=== PATIENT | male | born 1965 | race Caucasian/White ===

== ENCOUNTER 2024-06-22 06:16 | Day surgery (SDC) | payer SELFPAY, OTHER ==
[2024-06-22] VITALS (10 sets, daily range): BP systolic 109–126; BP diastolic 70–87; PULSE 60–78; RESP 10–18; TEMP 36.2–37.1; O2SAT 88–98; BMI 32.8
--- NOTE | 2024-06-22 06:26 | EKG12_ITS ---
Test Reason : PREOP Blood Pressure : */* mmHG Vent. Rate : 63 BPM Atrial Rate : 63 BPM P-R Int : 210 ms QRS Dur : 78 ms QT Int : 408 ms P-R-T Axes : 51 11 47 degrees QTcB Int : 417 ms Sinus rhythm with 1st degree A-V block Otherwise normal ECG No previous ECGs available Confirmed by NAOMI RAMOS, SARKIS ([id number]), newspaper managing editor YOSHI LANDON ([id number]) on 06/27/2024 8:19:11 A M Referred By: Ti Haywood Confirmed By: SARKIS SALGADO MD
--- NOTE | 2024-06-22 06:44 | PCM.PRE.AN2 ---
ASA Classification* ASA Classification ASA Classification: 2 Assessment & Plan Anesthesia* Anesthesia Assessment Anesthesia Assessment: Discussed sedation and/or anesthesia options, risks, benefits, and alternatives with patient/parents/legal guardian/POA. Questions invited. The patient/parents/legal guardian/POA seems to understand and agrees to proceed with anesthesia plan. Reviewed the physical assessment, medical history, allergy history and patient home medications list prior to surgery/procedure/anesthetic and documented any changes. Performed airway and anesthesia risk assessments. Anesthesia Type Anesthesia Type: General Anesthesia Focused Assessment* Airway Assessment Mouth opens: >3 cm Mallampati Score: II Focused Labs Anesthesia Preop lab: CBC CHEMISTRY COAG Pre-Assessment Diagnosis/Proposed Procedure Planned Operative Procedure(s): Lap Robotic Ventral Hernia w/mesh Anesthesia History Anesthesia History - irish moss gatherer: Anesthesia History - irish moss gatherer Hx Hospitalization No 06/16/24 13:15 Any Problems With Anesthesia No 06/16/24 13:15 Cholinesterase deficiency No 06/16/24 13:15 You/Your Family Experience No 06/16/24 13:15 fever (hyperthermia) with Relationship Recent Exposure to Contagious Disease Does patient have nerve No 06/16/24 13:15 stimulator Patient instructed to have device shut off --Does patient have Pacemaker or ICD? When Was Last Pacemaker Check QUESTION #4 FULL TEXT: You/Your Family Experience fever (hyperthermia) with Anesthesia Last Oral Intake Last Oral intake: Last Oral Intake NPO since Meds taken in AM with sips of water? Meds patient instructed to take am of surgery PONV PONV - irish moss gatherer: PONV - irish moss gatherer Female No 06/16/24 13:15 HX of Motion Sickness No 06/16/24 13:15 HX of N/V After Surgery No 06/16/24 13:15 Non-Smoker Yes 06/16/24 13:15 Duration of Surgery greater Yes 06/16/24 13:15 than 60 minutes Number of Risk Factors 2 06/16/24 13:15 PONV Score Moderate Risk 06/16/24 13:15 Height & Weight Height & Weight: Anesthesia: Height & Weight Height 5 ft 10.5 in 06/12/24 14:15 Respiratory Assessment Respiratory Assessment - irish moss gatherer: Respiratory Tract Infection Hx - irish moss gatherer Hx Respiratory Tract Infection No 06/16/24 13:15 STOP Sleep Apnea STOP Sleep Apnea - irish moss gatherer: STOP Sleep Apnea - irish moss gatherer Hx Hypertension No 06/16/24 13:15 Hx Sleep Apnea No 06/16/24 13:15 CPAP BIPAP Do you snore loudly (louder No 06/16/24 13:15 than talking or can be heard Do you often feel tired/ No 06/16/24 13:15 fatigued/ sleepy during daytime? Has anyone observed you stop No 06/16/24 13:15 breathing during sleep? STOP Results Negative 06/16/24 13:15 QUESTION #5 FULL TEXT : Do you snore loudly (louder than talking or can be heard through closed doors)? Tobacco Use History Tobacco Use History - irish moss gatherer: Tobacco Use History - irish moss gatherer Tobacco Use Smoking Status Never smoker 06/16/24 13:15 Hx Tobacco Use No 06/16/24 13:15 Years Smoking Packs Smoked per Day Smoking Cessation Date was within the last 15 years Hx Smoking Cessation Date Hx Smoking Cessation Counseling Hematologic Medial History Hematologic Hx - irish moss gatherer: Hematologic Medical Hx - educational director Hx of Blood Transfusion No 06/16/24 13:15 Hx of Transfusion in last 3 No 06/16/24 13:15 Months Date of Last Transfusion (if within last 3 months) Ever experience any problems No 06/16/24 13:15 with transfusion(s)? Specify any problems Hx of Preganancy in last 3 N/A 06/16/24 13:15 Months Nurse Filling Out Transfusion NBUCHER 06/16/24 13:15 & Questions: Date: 06/16/24 06/16/24 13:15 Time: 13:18 06/16/24 13:15 Patient unable to answer at this time (ie. confused, unrespo /Reproduction History /Reproductive History - irish moss gatherer: /Reproductive Hx- irish moss gatherer Hx Now No 06/16/24 13:15 Gestational Age (in weeks): EDC: Hx Hx Para Hx Section SAB No 06/16/24 13:15 Active Medications Active Medications: Current Medications Generic Name Dose Route Start Last Admin Trade Name Freq PRN Reason Stop Dose Admin Cefazolin Sodium 2 gm/ N/A 20 mls @ 400 mls/hr 06/22/24 07:30 IV 06/22/24 07:32 PREOP ONE Lactated Ringer's 1,000 mls @ 15 mls/hr 06/22/24 06:30 IV 06/25/24 01:09 .Q[facility]H [facility] Protocol PFSH Medical History Wears glasses Wears contact lenses Wears dentures High cholesterol Non-smoker Ventral hernia Depression Abdominal pain Weight loss Home Medications ?Medication ?Instructions ?Recorded ?Last Taken ?Type citalopram 20 mg tablet 30 mg PO QDAY 06/12/24 06/22/24 History clonazepam 1 mg tablet 1 mg PO BID PRN anxiety 06/12/24 06/22/24 History vit B galweqr-F-EM-iron fum-vit E 1 tab PO DAILY 06/12/24 Unknown History 500 mg-400 mcg-18 mg iron tablet Allergy/AdvReac Type Severity Reaction Status Date / Time No Known Allergies Allergy Verified 06/22/24 06:34 Family History Sister Colon cancer Uncle Colon cancer Surgical History S/P right knee surgery Social History Smoking Status: Never smoker alcohol intake: never Review of Systems (Anesthesia) ROS Narrative System reviewed and no additional complaints, except as documented.
[2024-06-22] MEDS: Lactated Ringers 1,000 ML 15 ML IV (06:46)
--- NOTE | 2024-06-22 07:12 | HP.PCM_ITS ---
HPI - General General Date of Admission: 06/22/24 Date of Service: 06/22/24 Chief Complaint: ventral hernia HPI Narrative PAUL ARELLANO, is a 58 M who presents for elective repair of ventral hernia [facility] Medical History Wears glasses Wears contact lenses Wears dentures High cholesterol Non-smoker Ventral hernia Depression Abdominal pain Weight loss Home Medications ?Medication ?Instructions ?Recorded ?Last Taken ?Type citalopram 20 mg tablet 30 mg PO QDAY 06/12/24 06/22/24 History clonazepam 1 mg tablet 1 mg PO BID PRN anxiety 06/12/24 06/22/24 History vit B qofyann-M-ER-iron fum-vit E 1 tab PO DAILY 06/12/24 Unknown History 500 mg-400 mcg-18 mg iron tablet Allergy/AdvReac Type Severity Reaction Status Date / Time No Known Allergies Allergy Verified 06/22/24 06:34 Family History Sister Colon cancer Uncle Colon cancer Surgical History S/P right knee surgery Social History Smoking Status: Never smoker alcohol intake: never Vital Signs Vital Signs Vital Signs: 06/22/24 06:35 06/22/24 06:35 Temperature 98.0 F Temperature Source Temporal Pulse Rate 64 Respiratory Rate 16 Respiratory Pattern Normal Blood Pressure 122/83 H Blood Pressure Mean 96 Blood Pressure Source Monitor Blood Pressure Position Semi-Fowlers Blood Pressure Location Right Arm Pulse Ox 98 Oxygen Delivery Method Room Air Weight Weight: 229 lb 4.492 oz Body Mass Index (BMI) 32.8 Physical Exam Narrative AAO x 3 no distress abd soft hernia noted Assessment & Plan Assessment/Plan (1) Ventral hernia: QUALIFIERS: Obstruction and gangrene presence: without obstruction or gangrene Qualified Code(s): K43.9 - Ventral hernia without obstruction or gangrene PLAN: Plan robotic ventral hernia repair with mesh today Charges/Coding Visit Charges Inpatient E&M: 33425 Init Hosp L1
[2024-06-22] MEDS: Cefazolin 2 GM in Syringe IV (07:28)
[2024-06-22] MEDS: Bupiv/Epi 0.25% 30 ML Vial (07:52)
--- NOTE | 2024-06-22 11:05 | EX.PCM.DISCH ---
Discharge Instructions Diet Discharge Diet: Light diet - advance as tolerated Activity Discharge Activity: Return to Normal Activity and May Shower May shower in (days): 1 Dressing / Incision Call your doctor if your incision/area has: Continuous Slow Oozing, Sudden Increased Bleeding, Increased Pain/ Swelling, Increased Redness, Foul Smelling Discharge and Swelling at the incision site Call your doctor if you observe: Fever of 101 or Higher Remove Dressing in: 2 days Cleanse incision/area with: Soap & Water Follow Up Care Please Follow Up With: Ti Haywood MD When: 2 weeks Test Results: Test results from this visit will be discussed in further detail at your follow-up appointment, if applicable. Discharge Plan Admission Primary Reason for Your Visit: Robotic ventral hernia repair with mesh Attending Provider: Ti Haywood Primary Care Provider: Daphne Castañeda NP Instructions Print Language: Turkmen Discharge Orders/Prescriptions Prescriptions: New oxycodone-acetaminophen [Percocet] 5-325 mg tablet 1 tab PO Q8H PRN (Reason: pain) 3 Days Qty: 10 0RF No Action citalopram 20 mg tablet 30 mg PO QDAY clonazepam 1 mg tablet 1 mg PO BID PRN (Reason: anxiety) vit B rvgs-B-IC-iron-vit E 500 mg-400 mcg- 18 mg iron tablet 1 tab PO DAILY Referrals / Follow Up: Daphne Castañeda NP, CARDIAC NURSE PRACTITIONER-C [Primary Care Provider] - Disposition Disposition (needs filled in before D/C Order can be placed): Home, Self Care
--- NOTE | 2024-06-22 11:08 | OP.PCM_ITS ---
Problems Associated Problem List Diagnoses (1) Ventral hernia: Operative Report (Standard) Operative Information Surgery/Procedure Performed: Robotic ventral hernia repair with mesh Surgeon: Ti Haywood Date of Procedure: 06/22/24 Procedure Start Time: 07:52 Procedure Stop Time: 10:58 Pre-Operative Diagnosis: Periumbilical/ventral hernia Post-Operative Diagnosis: Same Select all DRAINS/GRAFTS/IMPLANTS that apply: Implanted device Implanted device details: ProGrip mesh 10 x 15 cm Type of Anesthesia: General and Local Special Medications: Preoperative antibiotics Estimated Blood Loss: 15 cc Specimen collected: No Description of surgery: The patient is a 58-year-old male who presented to the office recently with hernia just above his umbilicus. This was becoming larger and causing him more symptoms. He wished to have this repaired. I offered a robotic repair with mesh. He wished to proceed. He was brought to the operating room today following informed consent. Preoperative antibiotics were given and a timeout was performed. He was placed supine on the operative table with arms comfortably tucked at his sides. General anesthesia was induced. The abdomen was then prepped and draped in the usual manner. A 5 mm incision was made in the left upper quadrant and a 5 mm trocar was placed optically. This was placed without incident. The abdomen was fully insufflated with CO2 gas. Next an 8 mm incision and trocar was placed in the left lower quadrant laterally. Another 8 mm trocar was placed just superior to that previous trocar. Finally the o riginal 5 mm trocar was switched to an 8 mm trocar. After this the robot was docked.. The hernia was visualized. There was some adhesions that were taken down superiorly using Bovie electrocautery and scissors. The peritoneal flap was then created using again scissors and electrocautery. Careful blunt dissection was performed towards the midline where the hernia was located. This turned out to be 2 fascial defects each about 1.5 cm in size and contain fat. These were in close proximity. The peritoneal dissection was carried across midline to accommodate the mesh. The fascial defects were then closed using strata fix suture. This closed the fascial defects nicely. The mesh selected was a 10 x 15 piece of ProGrip mesh this was placed in antibiotic solution and was inserted. It was rolled out and laid nicely. This was centered over the hernia defect. The peritoneal flap was then closed using a running V-Loc suture. There were 2 peritoneal holes which were closed with 3-0 Vicryl placed in interrupted arctiw-cy-lybas manner. After this the insufflation was allowed to escape and the trocars were removed. There were no signs of bowel or vascular injury. Incisions were then closed with 5-0 Vicryl. Skin glue was applied as dressing. He was awakened anesthesia. An abdominal binder was applied. He was taken the PACU in good condition. Surgical Findings: 2 fascial defects in close proximity. Business Account Manager hat block maker: Yes Gaming Cage Cashier: Bryan Sánchez Tasks completed by assistant prosecuting attorney: Closing Additional insurance underwriting assistant?: No Complications Complications: No Admit VTE Documentation VTE Present on Admission: No VTE Mechan Device Prophylaxis: SCD's Procedures Digestive 40xxx-49xxx: [id number] RPR AA HRN 1ST < 3 NCR/STRN
--- NOTE | 2024-06-22 11:10 | PCM.POST.ANE ---
Anesthesia: Postop Eval I Current Vital Signs Temperature: 97.1 F Pulse Rate: 69 Blood Pressure: 109/70 Respiratory Rate: 18 Pulse Ox: 93 Assessment Airway patent: Yes Spontaneous unlabored respirations: Yes nausea: No Vomiting: No Anesthesia Complication: No Fluid Hydration Crystalloid volume administer (ml): 1,800 Total IV fluid infused: 1,800 Progress Note Anesthesia document: Postop Eval 1 completed: Yes
--- NOTE | 2024-06-22 15:20 | SUR.PHASEII ---
up in [place] walking with steady gait, no pain, no nausea, has been drinking po fluids, does not have urge to void.
[2024-06-22] MEDS: oxyCODONE 5 MG Tablet PO (16:01)
--- NOTE | 2024-06-22 16:48 | POSTOPAN2_ITS ---
Anesthesia Postop Eval I Sum Postop Eval Completion status Anesthesia document: Postop Eval 1 completed: Yes Anesthesia Postop Eval I Summary Anesthesia Postop Eval I Summary: Anesthesia Postop Eval I: Assessment Summary Airway patent Yes 06/22/24 11:10 [email or web address] [email or web address] Spontaneous unlabored Yes 06/22/24 11:10 [email or web address] [email or web address] respirations Mental status nausea No 06/22/24 11:10 STONE [email or web address] Vomiting No 06/22/24 11:10 [email or web address] Anesthesia Postop Eval I: Fluid Summary Crystalloid volume administer 1,800 06/22/24 11:10 [email or web address] (ml) Colloids volume administered ( ml) Blood Product volume administered (ml) Total IV fluid infused 1,800 06/22/24 11:10 STONE [email or web address] Anesthesia Postop Eval I: Summary Notes Anesthesia Complication No 06/22/24 11:10 [email or web address] Anesthesia Complication Comment: Post-operative progress note Anesthesia: Postop Eval II Evaluation Mental status: Awake Pain Level: 0 nausea: No Vomiting: No
--- NOTE | 2024-06-22 16:48 | PCM.POSTANE2 ---
Anesthesia Postop Eval I Sum Postop Eval Completion status Anesthesia document: Postop Eval 1 completed: Yes Anesthesia Postop Eval I Summary Anesthesia Postop Eval I Summary: Anesthesia Postop Eval I: Assessment Summary Airway patent Yes 06/22/24 11:10 SPECIAL DEPUTY [email or web address] Spontaneous unlabored Yes 06/22/24 11:10 SPECIAL DEPUTY [email or web address].CSIR respirations Mental status nausea No 06/22/24 11:10 SPECIAL DEPUTY [email or web address].CSIR Vomiting No 06/22/24 11:10 SPECIAL DEPUTY [email or web address].CSIR Anesthesia Postop Eval I: Fluid Summary Crystalloid volume administer 1,800 06/22/24 11:10 SPECIAL DEPUTY [email or web address].CSIR (ml) Colloids volume administered ( ml) Blood Product volume administered (ml) Total IV fluid infused 1,800 06/22/24 11:10 SPECIAL DEPUTY [email or web address].CSIR Anesthesia Postop Eval I: Summary Notes Anesthesia Complication No 06/22/24 11:10 SPECIAL DEPUTY [email or web address].CSIR Anesthesia Complication Comment: Post-operative progress note Anesthesia: Postop Eval II Evaluation Mental status: Awake Pain Level: 0 nausea: No Vomiting: No
[2024-06-22] MEDS: Tamsulosin HCl 0.4 MG Capsule PO (17:14)
== END 2024-06-22 17:21 | disposition home or self-care (01) ==
LOC: SDC 06:19 → AC 06:19
PROVIDERS: PCP Nurse Practitioner Family; Referring Provider Surgery; Visit Provider Surgery
PROC: (CPT 49593; principal; 2024-06-22 07:05)
DX: K43.9 Ventral hernia without obstruction or gangrene (principal); F32.A Depression, unspecified; Z79.899 Other long term (current) drug therapy
CPT/HCPCS: 49593; S2900; 00750; 93005; J7040; J7120; J2405

== ENCOUNTER → 2025-05-21 | Outpatient (CLI) | payer SELFPAY, OTHER | END | disposition home or self-care (01) | LOC: CT 17:14 | PROVIDERS: PCP Nurse Practitioner Family; Referring Provider Surgery; Visit Provider Surgery | DX: K43.9 Ventral hernia without obstruction or gangrene (principal) | CPT/HCPCS: 74177; Q9967 ==

== ENCOUNTER 2025-06-11 11:04 | Day surgery (SDC) | payer SELFPAY, OTHER ==
--- NOTE | 2025-06-05 17:46 | PAT.ANESEVAL ---
Pre-Assessment Diagnosis/Proposed Procedure Planned Operative Procedure(s): LAPAROSCOPIC POSSIBLE OPEN VENTRAL HERNIA REPAIR WITH MESH Anesthesia History Anesthesia History - payroll secretary: Anesthesia History - payroll secretary Hx Hospitalization No 06/05/25 15:05 Any Problems With Anesthesia No 06/05/25 15:05 Cholinesterase deficiency No 06/05/25 15:05 You/Your Family Experience No 06/05/25 15:05 fever (hyperthermia) with Relationship Recent Exposure to Contagious No 06/22/24 06:35 Disease Does patient have nerve No 06/05/25 15:05 stimulator Patient instructed to have device shut off --Does patient have Pacemaker or ICD? When Was Last Pacemaker Check QUESTION #4 FULL TEXT: You/Your Family Experience fever (hyperthermia) with Anesthesia Last Oral Intake Last Oral intake: Last Oral Intake NPO since Meds taken in AM with sips of water? Meds patient instructed to take am of surgery PONV PONV - payroll secretary: PONV - payroll secretary Female Yes 06/05/25 15:05 HX of Motion Sickness No 06/05/25 15:05 HX of N/V After Surgery No 06/05/25 15:05 Non-Smoker Yes 06/05/25 15:05 Duration of Surgery greater Yes 06/05/25 15:05 than 60 minutes Number of Risk Factors 3 06/05/25 15:05 PONV Score Moderate Risk 06/05/25 15:05 Height & Weight Height & Weight: Anesthesia: Height & Weight Height 5 ft 10 in 06/04/25 09:44 Respiratory Assessment Respiratory Assessment - payroll secretary: Respiratory Tract Infection Hx - payroll secretary Hx Respiratory Tract Infection No 06/05/25 15:05 STOP Sleep Apnea STOP Sleep Apnea - payroll secretary: STOP Sleep Apnea - payroll secretary Hx Hypertension No 06/05/25 15:05 Hx Sleep Apnea No 06/05/25 15:05 CPAP BIPAP Do you snore loudly (louder No 06/05/25 15:05 than talking or can be heard Do you often feel tired/ No 06/05/25 15:05 fatigued/ sleepy during daytime? Has anyone observed you stop No 06/05/25 15:05 breathing during sleep? STOP Results Negative 06/05/25 15:05 QUESTION #5 FULL TEXT : Do you snore loudly (louder than talking or can be heard through closed doors)? Tobacco Use History Tobacco Use History - payroll secretary: Tobacco Use History - payroll secretary Tobacco Use Smoking Status Former smoker 06/05/25 15:05 Hx Tobacco Use No 06/05/25 15:05 Years Smoking Packs Smoked per Day Smoking Cessation Date was Yes - quit smoking within 15 06/05/25 15:05 within the last 15 years years Hx Smoking Cessation Date Hx Smoking Cessation Counseling Hematologic Medial History Hematologic Hx - payroll secretary: Hematologic Medical Hx - manager er Hx of Blood Transfusion No 06/05/25 15:05 Hx of Transfusion in last 3 No 06/05/25 15:05 Months Date of Last Transfusion (if within last 3 months) Ever experience any problems No 06/05/25 15:05 with transfusion(s)? Specify any problems Hx of Preganancy in last 3 N/A 06/05/25 15:05 Months Nurse Filling Out Transfusion [email or web address] 06/05/25 15:05 & Questions: Date: 06/05/25 06/05/25 15:05 Time: 15:08 06/05/25 15:05 Patient unable to answer at this time (ie. confused, unrespo /Reproduction History /Reproductive History - payroll secretary: /Reproductive Hx- payroll secretary Hx Now Gestational Age (in weeks): EDC: Hx Hx Para Hx Section SAB No 06/16/24 13:15 PFSH Medical History Former smoker Anxiety Recurrent ventral hernia Wears glasses Wears contact lenses Wears dentures High cholesterol Ventral hernia Depression Abdominal pain Weight loss Home Medications ?Medication ?Instructions ?Recorded ?Last Taken ?Type citalopram 20 mg tablet 30 mg PO QDAY 06/12/24 06/22/24 History clonazepam 1 mg tablet 1 mg PO BID PRN anxiety 06/12/24 06/22/24 History vit B wmcqvll-K-QV-iron fum-vit E 1 tab PO DAILY 06/12/24 Unknown History 500 mg-400 mcg-18 mg iron tablet Allergy/AdvReac Type Severity Reaction Status Date / Time No Known Allergies Allergy Verified 06/05/25 15:03 Family History Sister Colon cancer Uncle Colon cancer Surgical History S/P ventral herniorrhaphy S/P right knee surgery Social History Smoking Status: Former smoker alcohol intake: never substance use type: does not use Audit: Pertinent Findings Pertinent Findings EKG Perinent findings: EKG 06/22/2024. Sinus rhythm with first-degree AV block. Otherwise normal EKG. Recommendation Anesthesia Recommendation Anesthesia recommendation: OPTIMIZED for anesthesia
[2025-06-11] VITALS (10 sets, daily range): BP systolic 107–150; BP diastolic 67–92; PULSE 70–94; RESP 15–18; TEMP 36.2–37.1; O2SAT 91–98; BMI 34.4
--- NOTE | 2025-06-11 11:14 | PCM.HP.STD ---
HPI - General General Date of Admission: 06/11/25 Date of Service: 06/11/25 Chief Complaint: Recurrent ventral hernia HPI Narrative PAUL ARELLANO, is a 59 M who presents for repair of a recurrent ventral hernia. This was repaired about a year ago robotically. Patient noticed increasing bulge in the last couple months. He saw me in the office and confirmed hernia. CT scan was also performed. I recommended hybrid repair with laparoscopic as well as open techniques along with mesh. We discussed the details of the planned procedure and he wished to proceed. [facility] Medical History Former smoker Anxiety Recurrent ventral hernia Wears glasses Wears contact lenses Wears dentures High cholesterol Ventral hernia Depression Abdominal pain Weight loss Home Medications ?Medication ?Instructions ?Recorded ?Last Taken ?Type citalopram 20 mg tablet 30 mg PO QDAY 06/12/24 06/22/24 History clonazepam 1 mg tablet 1 mg PO BID PRN anxiety 06/12/24 06/22/24 History vit B dxjdixy-B-CD-iron fum-vit E 1 tab PO DAILY 06/12/24 Unknown History 500 mg-400 mcg-18 mg iron tablet Allergy/AdvReac Type Severity Reaction Status Date / Time No Known Allergies Allergy Verified 06/05/25 15:03 Family History Sister Colon cancer Uncle Colon cancer Surgical History S/P ventral herniorrhaphy S/P right knee surgery Social History Smoking Status: Former smoker alcohol intake: never substance use type: does not use Physical Exam Const alert, oriented x3 and no apparent distress Assessment & Plan Assessment/Plan (1) Recurrent ventral hernia: PLAN: Plan The patient is a 59-year-old male with a recurrent ventral hernia. Patient presents today for repair. We again discussed the details of the planned procedure and he wishes to proceed. This will begin momentarily
--- NOTE | 2025-06-11 11:18 | PCM.PRE.AN2 ---
ASA Classification* ASA Classification ASA Classification: 2 Assessment & Plan Anesthesia* Anesthesia Assessment Anesthesia Assessment: Discussed sedation and/or anesthesia options, risks, benefits, and alternatives with patient/parents/legal guardian/POA. Questions invited. The patient/parents/legal guardian/POA seems to understand and agrees to proceed with anesthesia plan. Reviewed the physical assessment, medical history, allergy history and patient home medications list prior to surgery/procedure/anesthetic and documented any changes. Performed airway and anesthesia risk assessments. Anesthesia Type Anesthesia Type: General Anesthesia Focused Assessment* Airway Assessment Mouth opens: >3 cm Mallampati Score: II Labs Anesthesia Preop lab: CBC CHEMISTRY COAG Pre-Assessment Diagnosis/Proposed Procedure Planned Operative Procedure(s): LAPAROSCOPIC POSSIBLE OPEN VENTRAL HERNIA REPAIR WITH MESH Anesthesia History Anesthesia History - signal repairer: Anesthesia History - signal repairer Hx Hospitalization No 06/05/25 15:05 Any Problems With Anesthesia No 06/05/25 15:05 Cholinesterase deficiency No 06/05/25 15:05 You/Your Family Experience No 06/05/25 15:05 fever (hyperthermia) with Relationship Recent Exposure to Contagious No 06/22/24 06:35 Disease Does patient have nerve No 06/05/25 15:05 stimulator Patient instructed to have device shut off --Does patient have Pacemaker or ICD? When Was Last Pacemaker Check QUESTION #4 FULL TEXT: You/Your Family Experience fever (hyperthermia) with Anesthesia Last Oral Intake Last Oral intake: Last Oral Intake NPO since Meds taken in AM with sips of water? Meds patient instructed to take am of surgery PONV PONV - signal repairer: PONV - signal repairer Female Yes 06/05/25 15:05 HX of Motion Sickness No 06/05/25 15:05 HX of N/V After Surgery No 06/05/25 15:05 Non-Smoker Yes 06/05/25 15:05 Duration of Surgery greater Yes 06/05/25 15:05 than 60 minutes Number of Risk Factors 3 06/05/25 15:05 PONV Score Moderate Risk 06/05/25 15:05 Height & Weight Height & Weight: Anesthesia: Height & Weight Height 5 ft 10 in 06/04/25 09:44 Respiratory Assessment Respiratory Assessment - signal repairer: Respiratory Tract Infection Hx - signal repairer Hx Respiratory Tract Infection No 06/05/25 15:05 STOP Sleep Apnea STOP Sleep Apnea - signal repairer: STOP Sleep Apnea - signal repairer Hx Hypertension No 06/05/25 15:05 Hx Sleep Apnea No 06/05/25 15:05 CPAP BIPAP Do you snore loudly (louder No 06/05/25 15:05 than talking or can be heard Do you often feel tired/ No 06/05/25 15:05 fatigued/ sleepy during daytime? Has anyone observed you stop No 06/05/25 15:05 breathing during sleep? STOP Results Negative 06/05/25 15:05 QUESTION #5 FULL TEXT : Do you snore loudly (louder than talking or can be heard through closed doors)? Tobacco Use History Tobacco Use History - signal repairer: Tobacco Use History - signal repairer Tobacco Use Smoking Status Former smoker 06/05/25 15:05 Hx Tobacco Use No 06/05/25 15:05 Years Smoking Packs Smoked per Day Smoking Cessation Date was Yes - quit smoking within 15 06/05/25 15:05 within the last 15 years years Hx Smoking Cessation Date Hx Smoking Cessation Counseling Hematologic Medial History Hematologic Hx - signal repairer: Hematologic Medical Hx - blintze roller Hx of Blood Transfusion No 06/05/25 15:05 Hx of Transfusion in last 3 No 06/05/25 15:05 Months Date of Last Transfusion (if within last 3 months) Ever experience any problems No 06/05/25 15:05 with transfusion(s)? Specify any problems Hx of Preganancy in last 3 N/A 06/05/25 15:05 Months Nurse Filling Out Transfusion [email or web address] 06/05/25 15:05 & Questions: Date: 06/05/25 06/05/25 15:05 Time: 15:08 06/05/25 15:05 Patient unable to answer at this time (ie. confused, unrespo /Reproduction History /Reproductive History - signal repairer: /Reproductive Hx- signal repairer Hx Now Gestational Age (in weeks): EDC: Hx Hx Para Hx Section SAB No 06/16/24 13:15 Active Medications Active Medications: Current Medications Generic Name Dose Route Start Last Admin Trade Name Freq PRN Reason Stop Dose Admin Cefazolin Sodium 2 gm/ Sodium 110 mls @ 200 mls/hr 06/11/25 12:30 Chloride IV 06/11/25 13:02 INTRAOP ONE Lactated Ringer's 1,000 mls @ 15 mls/hr 06/11/25 11:15 IV .Q48H ALANNAH PFSH Medical History Former smoker Anxiety Recurrent ventral hernia Wears glasses Wears contact lenses Wears dentures High cholesterol Ventral hernia Depression Abdominal pain Weight loss Home Medications ?Medication ?Instructions ?Recorded ?Last Taken ?Type citalopram 20 mg tablet 30 mg PO QDAY 06/12/24 06/22/24 History clonazepam 1 mg tablet 1 mg PO BID PRN anxiety 06/12/24 06/22/24 History vit B lfeyenb-X-CO-iron fum-vit E 1 tab PO DAILY 06/12/24 Unknown History 500 mg-400 mcg-18 mg iron tablet Allergy/AdvReac Type Severity Reaction Status Date / Time No Known Allergies Allergy Verified 06/05/25 15:03 Family History Sister Colon cancer Uncle Colon cancer Surgical History S/P ventral herniorrhaphy S/P right knee surgery Social History Smoking Status: Former smoker alcohol intake: never substance use type: does not use Review of Systems (Anesthesia) ROS Narrative System reviewed and no additional complaints, except as documented.
[2025-06-11] MEDS: Lactated Ringers 1,000 ML 15 ML IV (11:36)
[2025-06-11] MEDS: fentaNYL 100 MCG/2 ML Ampul IV (12:00)
[2025-06-11] MEDS: Midazolam 2 MG/2 ML Syringe IV (12:01)
[2025-06-11] MEDS: Cefazolin 1 GM/5 ML Vial 2 GM IV (12:03)
[2025-06-11] MEDS: Lidocaine 1% (5 ml sdv) 5 ML Vial IV (12:03)
--- NOTE | 2025-06-11 12:30 | HERN_PTH ---
PATIENT: PAUL ARELLANO LOC: [facility] – [place] U#:[id number] AGE/SX: 59/M ROOM: RE06/11/[address]: Dr. Ti Haywood MD : 1965 BED: DIS: 06/11/2025 SPEC #: [id number] RECD: 06/12/25 07:16 STATUS: KIM LEOBARDO #: [id number] RAMSES: 06/11/25 12:[address]: Ti Haywood DEPT: SURGICAL PATHOLOGY RECD BY: Robert Mccloud ENTERED: 06/12/25 11:12 SP TYPE: Hernia OTHR DR: Daphne Castañeda, DIRECTOR ORACLE-C Tissues: A - HERNIA Procedures: Surgery Specimen Level II HEADER OPERATION: Laparoscopic / open, ventral hernia repair with mesh PRE-OP DIAGNOSIS: Recurrent ventral hernia TISSUE SUBMITTED: A- Hernia sac MICROSCOPIC DIAGNOSIS A. Soft tissue, hernia sac, ventral hernia repair: - Fibroadipose tissue with fibrosis, partially covered by an attenuated mesothelium, consistent with hernia sac. MICROSCOPIC DESCRIPTION Slides are reviewed. GROSS DESCRIPTION A. Received in formalin labeled with the patient's name and date of . Designated as hernia sac is a 9.7 x 7.3 x 4.3 cm aggregate of alexander-yellow soft tissue and pink-hernandez semimembranous tissue fragment. Sectioning reveals soft to fibrotic cut surfaces; one tissue fragment contains blue synthetic material (suggestive of mesh). Sales Representative Trainee sections are submitted in 1 cassette. AK 06/12/2025 CPT:07022
[2025-06-11] MEDS: BUPIVACAINE LIPOSOME/PF 20 ML VIAL OPERA.SITE (14:30)
[2025-06-11] MEDS: 0.9% Normal Saline (Pres. free 10 ML Vial (14:30)
--- NOTE | 2025-06-11 15:43 | POSTOP.ANE_ITS ---
Anesthesia: Postop Eval I
--- NOTE | 2025-06-11 15:43 | PCM.POST.ANE ---
Anesthesia: Postop Eval I Current Vital Signs Temperature: 97.2 F Pulse Rate: 83 Blood Pressure: 114/67 Respiratory Rate: 16 Pulse Ox: 92 Assessment Airway patent: Yes Spontaneous unlabored respirations: Yes nausea: No Vomiting: No Anesthesia Complication: No Fluid Hydration Crystalloid volume administer (ml): 1,500 Total IV fluid infused: 1,500 Progress Note Anesthesia document: Postop Eval 1 completed: Yes
--- NOTE | 2025-06-11 15:47 | DCINST_ITS ---
Discharge Instructions
--- NOTE | 2025-06-11 15:47 | EX.PCM.DISCH ---
Discharge Instructions Diet Discharge Diet: Light diet - advance as tolerated Activity Discharge Activity: Return to Normal Activity and May Shower May shower in (days): 1 Ice area for (Minutes): 30 Lifting Restrictions: No lifting pushing or pulling more than 20 pounds for 6 to 8 weeks Additional Activity Instructions:: Wear abdominal binder for comfort Dressing / Incision Call your doctor if your incision/area has: Continuous Slow Oozing, Sudden Increased Bleeding, Increased Pain/ Swelling, Increased Redness, Foul Smelling Discharge and Swelling at the incision site Call your doctor if you observe: Fever of 101 or Higher Remove Dressing in: 5 days Cleanse incision/area with: Soap & Water Follow Up Care Please Follow Up With: Ti Haywood MD When: 1 week. Please call office to schedule appointment Test Results: Test results from this visit will be discussed in further detail at your follow-up appointment, if applicable. Discharge Plan Admission Primary Reason for Your Visit: Ventral hernia repair Attending Provider: Ti Haywood Primary Care Provider: Daphne Castañeda NP Instructions Print Language: Japanese Discharge Orders/Prescriptions Prescriptions: New oxycodone 5 mg tablet 5 mg PO Q8H PRN (Reason: pain) 4 Days Qty: 14 0RF Continued citalopram 20 mg tablet 30 mg PO QDAY clonazepam 1 mg tablet 1 mg PO BID PRN (Reason: anxiety) vit B rxro-F-HP-iron-vit E 500 mg-400 mcg- 18 mg iron tablet 1 tab PO DAILY Referrals / Follow Up: Daphne Castañeda NP, SHOTGUN SHELL ASSEMBLY MACHINE ADJUSTER-C [Primary Care Provider, Medical] Disposition Disposition (needs filled in before D/C Order can be placed): Home, Self Care
--- NOTE | 2025-06-11 15:51 | POSTOPAN2_ITS ---
Anesthesia Postop Eval I Sum
--- NOTE | 2025-06-11 15:51 | PCM.POSTANE2 ---
Anesthesia Postop Eval I Sum Postop Eval Completion status Anesthesia document: Postop Eval 1 completed: Yes Anesthesia Postop Eval I Summary Anesthesia Postop Eval I Summary: Anesthesia Postop Eval I: Assessment Summary Airway patent Yes 06/11/25 15:43 [email or web address] Spontaneous unlabored Yes 06/11/25 15:43 [email or web address] respirations Mental status nausea No 06/11/25 15:43 [email or web address] Vomiting No 06/11/25 15:43 [email or web address] Anesthesia Postop Eval I: Fluid Summary Crystalloid volume administer 1,500 06/11/25 15:43 [email or web address] (ml) Colloids volume administered ( ml) Blood Product volume administered (ml) Total IV fluid infused 1,500 06/11/25 15:43 [email or web address] Anesthesia Postop Eval I: Summary Notes Anesthesia Complication No 06/11/25 15:43 [email or web address] Anesthesia Complication Comment: Post-operative progress note Anesthesia: Postop Eval II Evaluation Mental status: Awake Pain Level: 2 nausea: No Vomiting: No
--- NOTE | 2025-06-11 15:53 | PCM.OPRPT ---
Procedures Digestive 40xxx-49xxx: [id number] Lap ing hernia repair recur Procedures Nervous CF Procedures [id number]: Other Procedure See Report ([id number] bilateral tap block) Operative Report (Standard) Operative Information Date of Procedure: 06/11/25 Pre-Operative Diagnosis: Recurrent ventral hernia Post-Operative Diagnosis: Same Surgery/Procedure Performed: 1. Laparoscopic/open repair of a recurrent ventral hernia with mesh 2. Laparoscopic bilateral tap block. plastics design engineer: Yes Steam Room Attendant: Chelly Dumont Tasks completed by assistant professor of archaeology: Closing, Trocar, Retracting and Other Additional fleet administrative assistant?: No Type of Anesthesia: General and Other (Bilateral tap block) RN Documented Start/Stop Times: Operation Date: 06/11/25 12:30 Case Time Into Pre-Op 06/11/25 11:06 Anesthesia Start 06/11/25 11:58 Into Room 06/11/25 11:58 Procedure Start 06/11/25 12:25 Procedure End 06/11/25 15:25 Anesthesia End 06/11/25 15:37 Out of Room 06/11/25 15:37 Into Recovery 06/11/25 15:41 Procedure Start Time: 12:25 Procedure Stop Time: 15:25 Select all DRAINS/GRAFTS/IMPLANTS that apply: Prosthetic device Prosthetic device details: Bard Ventralight ST mesh 15 x 25 cm Special Medications: IV Ancef preop Estimated Blood Loss: 50 mL Specimen collected: Yes Description of specimen(s) removed: Hernia sac Description of surgery: The patient is a 59-year-old male who originally saw me about a year ago with a ventral hernia. I offered and performed a ventral hernia repair with mesh done robotically. He initially did very well however couple of months ago he began noticing another bulge in the central abdomen. Patient was concerned about the possibility of a hernia. He came back to see me in the office. He clearly did have a hernia at the site of a previous hernia. I had him undergo a CT scan to better study the anatomy and size of the hernia defect. I offered him a laparoscopic/open hybrid repair with mesh. We discussed the details of the planned procedure and he wished to proceed. Patient was brought to the operating room today following informed consent. Preoperative antibiotics were given and a timeout was performed. He was placed supine on the operative table with arms outstretched and arm boards. A general endotracheal anesthesia was induced. His arms were then comfortably tucked at his sides. The abdomen was then prepped and draped in the usual sterile manner. Local anesthetic was injected in the left upper quadrant at the site of a previous trocar insertion site. A 5 mm trocar was then placed optically without incident. The abdomen was then fully insufflated with CO2 gas. The hernia site was visualized. This did appear areas to adjacent fascial defects. No bowel was stuck to the hernia or the abdominal wall. It appeared that the previous mesh may have migrated to 1 side. An additional 5 mm trocar was placed in the left lower quadrant. Adhesions were then taken down involving the anterior abdominal wall. These were small and were taken down with scissors connected to electrocautery. Next, a bilateral tap block was performed using Marcaine and Exparel. After this a midline incision was made from just below the umbilicus to about 4 inches above the umbilicus. Bovie electrocautery was then used to dissect down through the subcutaneous tissues. The hernia sac was incised. The abdomen at this point was entered. The hernia sac was excised. The fascial edges were cleared. Some of the old mesh was removed along with the hernia sac. Once the fascial edges were cleared. The fascial defect was measured and was roughly 12 cm in length by about 4 in width. I selected the mesh to be utilized. The mesh selected was a Bard Ventralight ST 15 x 25 cm mesh. 0 Prolene sutures were placed at the center as well as the superior and inferior aspects of the mesh along the midline. The mesh was then dipped in antibiotic solution and rolled up and inserted into the abdomen. The fascia was then closed in a interrupted [id number] manner using 2-0 Ethibond suture. Numerous sutures were placed along the entire length of the fascial closure. This closed the fascia nicely. Next the abdomen was reinsufflated with CO2 gas. The mesh was unrolled. It was oriented to the appropriate direction. Using a Phoenix Merlos needle I was able to grasp the ends of the suture at the 3 sites of the Prolene suture on the mesh. I was then able to parachute the mesh up against the anterior abdominal wall. 2 additional trocars were placed under direct visualization on the right side of the abdomen. Then using a secure strap tacker x 2, the mesh was secured in place. This laid very nicely without any obvious gaps or folds. At this point insufflation was allowed to escape. I reexamined the surgical site and plicated some of the upper abdominal region as there was a bit of a diastases. This diastases was closed using #1 PDS in a running manner. A 10 flat ROULA drain was laid into the operative wound after irrigation was performed. The drain was brought out through left lower quadrant incision. Hemostasis was excellent. The wound was then closed using 3-0 Vicryl in 2 layers and then 4-0 Monocryl was then used to close the skin incision. Skin glue was applied as dressing along with a Mepilex silver dressing. The patient was awakened by anesthesia and taken to recovery in good condition. An abdominal binder was also placed Surgical Findings: 12 x 4 cm fascial defect size Complications Complications: No Admit VTE Documentation VTE Present on Admission: No VTE Mechan Device Prophylaxis: SCD's VTE Pharm Prophylaxis ordered?: No Reason prophylaxis not ordered: Treatment Not Indicated
== END 2025-06-11 19:30 | disposition home or self-care (01) ==
LOC: SDC 11:05 → AC 11:06
PROVIDERS: PCP Nurse Practitioner Family; Referring Provider Surgery; Visit Provider Surgery
PROC: 0WQF4ZZ Repair Abdominal Wall, Percutaneous Endoscopic Approach (ICD-10-PCS; CPT 49617; principal; 2025-06-11 12:10)
DX: K43.2 Incisional hernia without obstruction or gangrene (principal); Z87.891 Personal history of nicotine dependence; E78.00 Pure hypercholesterolemia, unspecified; F41.9 Anxiety disorder, unspecified; F32.A Depression, unspecified; Z79.899 Other long term (current) drug therapy
CPT/HCPCS: 49617; 49623; 00832; 88302; 93005; C1781; J0666; J2405